=== PATIENT | female | born 1965 | race Caucasian/White ===

== ENCOUNTER 2019-12-23 11:43 | Inpatient (IN) | payer OTHER ==
[~2019-12-23] VITALS: Ht 167.6 cm; Wt 92.6 kg
[2019-12-23 11:56] VITALS: BP 115/92
[2019-12-23] MEDS ORDERED: METFORMIN HCL500 M3 PO (11:59)
[2019-12-23] MEDS ORDERED: GLYBURIDE 5 MG T5 M1 PO (12:00)
[2019-12-23] MEDS ORDERED: LIPITOR80 MG PO (12:01)
[2019-12-23] MEDS ORDERED: HUMALOG100 UNIT/1 SUBQ (12:02)
[2019-12-23 12:30] LABS: ABSOLUTE BASOPHILS 0.1 thou/uL (0.0-0.2); ABSOLUTE EOSINOPHILS 0.1 thou/uL (0.0-0.7); ABSOLUTE LYMPHOCYTES 1.6 thou/uL (0.8-5.3); ABSOLUTE MONOCYTES 0.4 thou/uL (0.0-1.2); ABSOLUTE NEUTROPHILS 3.5 thou/uL (1.6-8.1); BASOPHILS 0.9 %; EOSINOPHILS 2.3 %; HEMATOCRIT 29.9 % (37.0-47.0); HEMOGLOBIN 10.1 gm/dL (12.0-15.0); MCH 30.8 pg (26.0-34.0); MCHC 33.6 g/dL (28.0-37.0); MCV 91.5 fL (80.0-100.0); MONOCYTES 6.9 %; MPV 8.8 fl. (7.2-11.1); NUCLEATED RBCS 0 /100WBC; PLATELET COUNT* 238 thou/uL (150-400); POLYS 61.9 %; RBC 3.26 mil/uL (4.20-5.00); RDW-CV 14.7 % (10.5-14.5); WBC 5.6 thou/uL (4.0-11.0)
[2019-12-23 12:41] LABS: CALCIUM 7.4 mg/dL (8.5-10.1); CREATININE 3.1 mg/dL (0.6-1.3); POTASSIUM 4.1 mmol/L (3.5-5.1)
[2019-12-23 12:52] LABS: ALBUMIN 1.4 g/dL (3.4-5.0); TOTAL BILIRUBIN 0.3 mg/dL (<0.1-1.0); TOTAL PROTEIN 5.8 g/dL (6.4-8.2)
[2019-12-23 14:58] LABS: AMP/METHAMP Negative (Negative); BARBITURATES Negative (Negative); BENZODIAZEPINES Negative (Negative); COCAINE Negative (Negative); METHADONE Negative (Negative); OPIATES Negative (Negative); PCP Negative (Negative); THC Negative (Negative)
[2019-12-23 16:00] VITALS: BP 182/86
[2019-12-23 16:58] VITALS: BP 180/72
[2019-12-23 20:00] VITALS: BP 158/72
[2019-12-24] VITALS: BP 172/68
[2019-12-24 04:00] VITALS: BP 151/81
[2019-12-24 06:01] LABS: ALBUMIN 1.1 g/dL (3.4-5.0); CALCIUM 7.1 mg/dL (8.5-10.1); MAGNESIUM 1.3 mg/dL (1.8-2.4); POTASSIUM 4.1 mmol/L (3.5-5.1); TOTAL BILIRUBIN 0.3 mg/dL (<0.1-1.0); TOTAL PROTEIN 5.1 g/dL (6.4-8.2)
--- NOTE | 2019-12-24 10:12 | EKG ---
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
[2019-12-24 12:00] VITALS: BP 156/83
--- NOTE | 2019-12-24 16:04 | 2DMMODE ---
[place] [address] 2 D/M-MODE ECHOCARDIOGRAM Name: SANDRO GIRARD Room: [address] ADM IN M.R.#: [id number] Admission: 12/23/19 Attend Phys: Amando munoz Sa Discharge: Date of : 65 Date of Service: 12/24/19 1603 Report #: [id number] THIS REPORT FOR: //name// APPROVED REPORT Study performed: 12/24/2019 14:47:17 EXAM: Comprehensive 2D, Doppler, and color-flow Echocardiogram BSA: 1.97 HR: 83 bpm BP: 184/83 mmHg Other Information Study Quality: Good Indications Dyspnea 2D Dimensions IVSd: 16.90 (7-11mm) LVOT Diam: 18.32 (18-24mm) LVDd: 39.18 mm PWd: 10.71 (7-11mm) Ascending Ao: 31.34 (22-36mm) LVDs: 30.22 (25-40mm) Aortic Root: 30.30 mm Volumes Left Atrial Volume (Systole) LA ESV Index: 16.30 mL/m2 Aortic Valve AoV Peak Malachi.: 1.32 m/s AO Peak Gr.: 6.97 mmHg LVOT Max P.40 mmHg AO Mean Gr.: 4.40 mmHg LVOT Mean P.76 mmHg LVOT Max V: 0.92 m/s AO V2 VTI: 26.75 cm LVOT Mean V: 0.62 m/s ALYSSA (VTI): 1.77 cm2 LVOT V1 VTI: 17.95 cm Mitral Valve E/A Ratio: 0.78 MV Decel. Time: 182.33 ms MV E Max Malachi.: 0.75 m/s MV PHT: 52.88 ms MVA (PHT): 4.16 [place] [address] 2 D/M-MODE ECHOCARDIOGRAM Name: SANDRO GIRARD Room: [address] IN .R.#: [id number] Admission: 12/23/19 Attend Phys: Amando munoz Sa Discharge: Date of : 65 Date of Service: 12/24/19 1603 Report #: [id number] TDI E/Lateral E': 5.77 E/Medial E': 6.25 Medial E' Malachi.: 0.12 m/s Lateral E' Malachi.: 0.13 m/s Pulmonary Valve PV Peak Malachi.: 0.94 m/s PV Peak Gr.: 3.50 mmHg Tricuspid Valve RAP Estimate: 5.00 mmHg TR Peak Gr.: 23.90 mmHg RVSP: 28.90 mmHg PA Pressure: 28.90 mmHg Left Ventricle The left ventricle is normal size. There is normal LV segmental wall motion. basal septal hypertrophy noted Left ventricular systolic function is normal. The left ventricular ejection fraction is within the normal range. LVEF is 60-65%. Grade I - abnormal relaxation pattern. Right Ventricle The right ventricle is normal size. The right ventricular systolic function is normal. Atria The left atrium size is normal. Interatrial septum not well visualized. The right atrium size is normal. Aortic Valve The aortic valve is normal in structure. No aortic regurgitation is present. There is no aortic valvular stenosis. Mitral Valve The mitral valve is normal in structure. There is no mitral valve regurgitation noted. No evidence of mitral valve stenosis. Tricuspid Valve The tricuspid valve is normal in structure. Trace tricuspid regurgitation. Pulmonic Valve The pulmonary valve is normal in structure. Trace pulmonic regurgitation. Great Vessels The aortic root is normal in size. IVC [place] [address] 2 D/M-MODE ECHOCARDIOGRAM Name: VITO GIRARDORA Room: [address] IN [facility]#: [id number] Admission: 12/23/19 Attend Phys: Amando munoz Sa Discharge: Date of : 65 Date of Service: 12/24/19 1603 Report #: [id number] collapses >50% with inspiration. Pericardium There is no pericardial effusion. <Conclusion> LVEF is 60-65%. <ELECTRONICALLY SIGNED> By: Orlin Sanford MD, [facility] 12/24/19 1603 160 160 Orlin Sanford MD, FAC /INF
[2019-12-25 09:07] LABS: HEPATITIS B SURFACE AG Negative (Negative)
[2019-12-25 09:08] LABS: HIV-1/HIV-2 ANTIBODY Non Reactive (Non Reactive)
== END 2019-12-24 17:00 | disposition left against medical advice (07) | DRG 441 ==
LOC: M.ERS 11:43 → M.2W 13:46 → M.TBA-ER 13:46 → M.2W 16:04
PROVIDERS: Nurse Practitioner Family; ADMIT Family Medicine
DX: B17.9 Acute viral hepatitis, unspecified (principal); E43 Unspecified severe protein-calorie malnutrition; N18.4 Chronic kidney disease, stage 4 (severe); N17.9 Acute kidney failure, unspecified; E78.5 Hyperlipidemia, unspecified; R60.0 Localized edema; E11.22 Type 2 diabetes mellitus with diabetic chronic kidney disease; R79.1 Abnormal coagulation profile; E80.6 Other disorders of bilirubin metabolism; Z79.899 Other long term (current) drug therapy; Z79.84 Long term (current) use of oral hypoglycemic drugs; Z79.4 Long term (current) use of insulin; Z68.33 Body mass index [BMI] 33.0-33.9, adult